=== PATIENT | male | born 1985 | race Caucasian/White ===

== ENCOUNTER 2018-06-15 04:18 | Emergency (ER) | payer OTHER ==
[2018-06-15] MEDS ORDERED: SODIUM CHLORIDE 0.9% 1000ML 1,000 ML ONE (04:30)
[2018-06-15] MEDS ORDERED: SODIUM CHLORIDE 0.9% 1000ML 1,000 ML IVS ONE (04:34)
[2018-06-15 04:59] VITALS: TEMP 96.1
--- NOTE | 2018-06-15 05:11 | RAD ---
EXAM: Single view chest. INDICATION: Respiratory distress. COMPARISON: Chest x-ray: None. FINDINGS: Cardiac silhouette: Unremarkable. Blanca: Unremarkable. Lobar consolidation: None. Pleural effusion: None. Pneumothorax: None. Other: None. Bones: Unremarkable. Other: None. IMPRESSION: 1. No acute cardiopulmonary process. Electronically signed by: Oscar Mckeon MD 06/15/2018 5:08 AM [facility] Workstation: [id number]
--- NOTE | 2018-06-15 05:42 | ED.PDOC ---
History of Present Illness - General Chief Complaint: Respiratory Problem Stated Complaint: respiratory distress Time Seen by Provider: 06/15/18 05:32 Source: EMS Exam Limitations: clinical condition - has ALS, physical impairment - unable to communicate just moves eyes - History of Present Illness Initial Comments: Raheem Saez 32 y/o male [place] resident at [facility] with history of ALS diagnose in 2014 brought by EMS that he was noted to be weak, with low heart rate.He has been on Trilogy respiratory support for his ALS His vital signs taken at [place] bp-106/70;p-94 Sao2-96 [id number] here at ER Timing/Duration: 1-3 hours Severity: moderate Improving Factors: other - bipap Worsening Factors: other - has ALS Associated Symptoms: other - see hpi Allergies/Adverse Reactions: Allergies NO KNOWN ALLERGY Allergy (Verified 06/15/18 04:48) Home Medications: Ambulatory Orders Acetaminophen 06/15/18 Gabapentin 06/15/18 Ketoconazole (Topical) [Nizoral] 06/15/18 Menthol (Topical Analgesic) [Biofreeze] 06/15/18 Riluzole 06/15/18 Rivaroxaban [Xarelto] 15 mg PO DAILY 06/15/18 Review of Systems - Review of Systems Constitutional: States: no symptoms reported EENTM: States: no symptoms reported Respiratory: States: see HPI Cardiology: States: no symptoms reported Gastrointestinal/Abdominal: States: no symptoms reported Genitourinary: States: no symptoms reported Skin: States: no symptoms reported Neurological: States: see HPI, pre-existing deficit Past Medical History (General) - Patient Medical History Hx Seizures: - unknown Hx Stroke: - unknown Hx Dementia: - unknown Hx Asthma: - unknown Hx of COPD: - unknown Hx Cardiac Disorders: - unknown Hx Congestive Heart Failure: No Hx Pacemaker: - unknown Hx Hypertension: - unknown Hx Thyroid Disease: - unknown Hx Diabetes: - unknown Hx Gastroesophageal Reflux: - unknown Hx Renal Disease: - unknown Hx of HIV: - unknown Hx MRSA: - unknown Hx Other PMH: Yes - ALS Surgical History: appendectomy - Vaccination History Hx Tetanus, Diphtheria Vaccination: No - unknown Hx Influenza Vaccination: No - unknown Hx Pneumococcal Vaccination: No - unknown Immunizations Up to Date: No - unknown - Social History Hx Tobacco Use: No Hx Alcohol Use: No Hx Physical Abuse: No Hx Emotional Abuse: No - Activities of Daily Living Prison/Assisted Living (if applicable):: Tam Bernardo Grooming Ability: Total Assistance Eating (Feeding) Ability: Total Assistance Toileting Ability: Total Assistance Family Medical History - Family History Mother Brother Family History: Unknown Physical Exam - Physical Exam General Appearance: Lethargic, Obvious distress Eye Exam: bilateral normal Ears, Nose, Throat: hearing grossly normal, other - dry oral mucosa Neck: supple, normal inspection Respiratory: lungs clear, respiratory distress Cardiovascular/Chest: no gallop, no murmur, tachycardia, other - eweak pulses Peripheral Pulses: radial,right: 1+, radial,left: 1+ Gastrointestinal/Abdominal: soft, no organomegaly Extremity: normal inspection, no pedal edema Neurologic: motor weakness - upper and lower extremities, other - unable to communcate verbally Skin Exam: normal color, warm/dry Progress - Progress Progress: 06/15/18 05:51 Talked with his brother Aaron on the phone regarding his brothers clinical condition and stated wants everything done on his brother-full code at this time. Vital Signs - 8 hr 06/15/18 06/15/18 06/15/18 04:30 04:33 04:55 Temperature 96.1 F L Pulse Rate [ 141 H Apical] Pulse Rate [ 147 H 137 H left] Respiratory 22 22 18 Rate Blood Pressure 141/113 [right] O2 Sat by Pulse 85 L Oximetry 06/15/18 06/15/18 05:00 05:40 Temperature Pulse Rate [ Apical] Pulse Rate [ 123 H 112 H left] Respiratory 18 18 Rate Blood Pressure 114/85 96/79 [right] O2 Sat by Pulse 96 96 Oximetry On his arrival he was BVM ventilated which perk him up then was connected to Bipap machine I/E -10/5;O2 -50% RR-16 06/15/18 06:21 06/15/18 06:24 He is on Bipap at present is more alert ,awake shakes and nods head if talked to. - Results/Orders Results/Orders: 06/15/18 05:22 UA [URINALYSIS] Stat 06/15/18 05:27 Arterial Blood Gas Stat BiPAP/CPAP Treatment DAILY 06/15/18 05:30 EKG STAT 06/15/18 09:00 BiPAP Daily Laboratory Results - last 24 hr 06/15/18 06/15/18 06/15/18 04:30 04:37 04:37 WBC 15.1 H RBC 4.82 Hgb 15.0 Hct 46.4 MCV 96.3 H MCH 31.1 H MCHC 32.3 L RDW 13.2 Plt Count 414 H MPV 9.8 Absolute Neuts (auto) 8.40 H Absolute Lymphs (auto) 5.30 H Absolute Monos (auto) 1.20 H Absolute Eos (auto) 0.20 Absolute Basos (auto) 0.10 Neutrophils % 55.4 Lymphocytes % 34.9 Monocytes % 7.7 Eosinophils % 1.5 Basophils % 0.5 PT 11.5 H INR 1.15 PTT (SP) 33.2 H Sodium 138 Potassium 5.3 H Chloride 100 L Carbon Dioxide 26 Anion Gap 17.3 BUN 16 Creatinine < 0.40 L BUN/Creatinine Ratio 40.0 H Random Glucose 142 H Serum Osmolality 279.3 Lactic Acid 1.7 Calcium 9.6 Magnesium 2.2 Creatine Kinase 87 CK-MB (CK-2) 9.8 H* CK-MB (CK-2) % 11.26 H Troponin I < 0.02 B-Natriuretic Peptide < 5.0 ABG-ph-7.35;co2-35;po2-177 Sao2-98.6 % on bipap - EKG/XRAY/CT EKG: Sinus, Tachy Comments: HR-138 XRAY: chest - no acute abnormalities Departure - Departure Clinical Impression: Lethargic, ALS (amyotrophic lateral sclerosis), Dehydration Acute and chronic respiratory failure, unspecified whether with hypoxia or hypercapnia Qualifiers: Respiratory failure complication: unspecified whether with hypoxia or hypercapnia Qualified Code(s): J96.20 - Acute and chronic respiratory failure, unspecified whether with hypoxia or hypercapnia Time of Disposition: 06:58 Disposition: Discharge to SNF Condition: Poor Departure Forms: ED Discharge - Pt. Copy, Patient Portal Self Enrollment Referrals: MARY ELLEN ANDREA [Primary Care Provider] - 1-2 Weeks Home Medications: Ambulatory Orders Acetaminophen 06/15/18 Gabapentin 06/15/18 Ketoconazole (Topical) [Nizoral] 06/15/18 Menthol (Topical Analgesic) [Biofreeze] 06/15/18 Riluzole 06/15/18 Rivaroxaban [Xarelto] 15 mg PO DAILY 06/15/18 Additional Instructions: Continue with respiratory support Trilogy and all medications;Return to ER as needed
[2018-06-15 07:28] VITALS: BP 110/75; O2SAT 98
== END 2018-06-15 07:28 ==
LOC: ER 04:18
DX: J96.20 Acute and chronic respiratory failure, unspecified whether with hypoxia or hypercapnia (principal); E86.0 Dehydration; R53.83 Other fatigue; G12.21 Amyotrophic lateral sclerosis; Z79.899 Other long term (current) drug therapy
CPT/HCPCS: 36600; 71045; 80048; 81001; 82550; 82553; 82803; 82805; 83605; 83880; 84484; 85025; 85610; 85730; 93005; 94660; J7030

== ENCOUNTER 2018-07-29 06:34 | Emergency (ER) | payer OTHER ==
[2018-07-29] MEDS ORDERED: ETOMIDATE INJECTION 2 MG/ML 20ML VIAL IV ONE (06:35)
[2018-07-29] MEDS ORDERED: SUCCINYLCHOLINE CHLORIDE 200 MG/10 ML VIAL ONE ×2 (06:37→10:42)
[2018-07-29] MEDS ORDERED: MIDAZOLAM INJ 5 MG/5 ML VIAL ONE ×3 (06:41→10:54)
[2018-07-29] MEDS ORDERED: MIDAZOLAM INJ 5 MG/5 ML VIAL IV ONE ×2 (06:45→07:35)
[2018-07-29] MEDS ORDERED: SODIUM CHLORIDE 0.9% 1000ML 1,000 ML ONE (06:47)
[2018-07-29] MEDS ORDERED: SODIUM CHLORIDE 0.9% 1000ML 1,000 ML IVS ONE ×2 (06:55→09:03)
--- NOTE | 2018-07-29 07:00 | ED.PDOC ---
History of Present Illness - General Source: patient Exam Limitations: no limitations - History of Present Illness Initial Comments: the patient is a 32-year-old male brought in by EMS secondary tobeing found unresponsive at his shelter. The patient has a history of ALS. He is normally on CPAP or BiPAP at night. He has previously refused tracheostomy in the past. He was apparently fairly normal for him when he went to bed last night but was unresponsive this morning. He was bradycardic and staff at the Center started chest compressions. by the time EMS arrived he was essentially apneic.oxygen saturation started decreasing in route. By the time they arrived here in spite of bagging his oxygen saturations were in the 30s. Rapid intubation was performed without medications with a 7.5 ET tubeto 20 cm at the teeth. Good return of normal oxygenation by pulse oximetry. He has bagging easy. He was switched over to a ventilator. He did receive 4 mg of Versed which unfortunately did drop his blood pressure somewhat. He is receiving some IV fluids to help correct that. He seems to be resting comfortably on the ventilator at this point. We are trying to connect with family. Paperwork from the shelter shows that he is full code. Chest x-ray, urinalysis, EKG, ABG and other laboratory workup being performed. Timing/Duration: unsure Severity: severe Improving Factors: nothing <Lui Don - Last Filed: 07/29/18 06:57> <Markus Hull - Last Filed: 07/29/18 09:14> - General Chief Complaint: Unresponsive Stated Complaint: unresponsive Time Seen by Provider: 07/29/18 06:45 - History of Present Illness Allergies/Adverse Reactions: Allergies NO KNOWN ALLERGY Allergy (Verified 06/15/18 04:48) Home Medications: Ambulatory Orders Acetaminophen 650 mg PO BID 06/15/18 Gabapentin 300 mg PO BEDTIME 06/15/18 Ketoconazole (Topical) [Nizoral] 1 oz .ROUTE WKLY 06/15/18 Menthol (Topical Analgesic) [Biofreeze] 1 drop EPI BID 06/15/18 Riluzole 50 mg PO BID 06/15/18 Rivaroxaban [Xarelto] 15 mg PO DAILY 06/15/18 Review of Systems - Review of Systems Review of Systems: 07/29/18 07:01 unable to give review of systems secondary to medical condition. <Lui Don - Last Filed: 07/29/18 06:57> Past Medical History (General) - Patient Medical History Hx Seizures: - unknown Hx Stroke: - unknown Hx Dementia: - unknown Hx Asthma: - unknown Hx of COPD: - unknown Hx Cardiac Disorders: - unknown Hx Congestive Heart Failure: No Hx Pacemaker: - unknown Hx Hypertension: - unknown Hx Thyroid Disease: - unknown Hx Diabetes: - unknown Hx Gastroesophageal Reflux: - unknown Hx Renal Disease: - unknown Hx of HIV: - unknown Hx MRSA: - unknown - Vaccination History Hx Tetanus, Diphtheria Vaccination: No - unknown Hx Influenza Vaccination: No - unknown Hx Pneumococcal Vaccination: No - unknown - Social History Hx Tobacco Use: No Hx Alcohol Use: No Hx Physical Abuse: No Hx Emotional Abuse: No <Lui Don - Last Filed: 07/29/18 06:57> Family Medical History - Family History Mother Brother Family History: Unknown <Lui Don Shirley - Last Filed: 07/29/18 06:57> Physical Exam - Physical Exam General Appearance: Other - the patient is pale and starting to become a little cyanotic. He is essentially flaccid by the time I see him. Eye Exam: bilateral normal - 3 mm bilaterally but minimally reactive Ears, Nose, Throat: normal pharynx - mildly dry, other - blood from the right nares Neck: full range of motion Respiratory: lungs clear - [id number] G-tube is in place, other - essentially no respiratory drive Cardiovascular/Chest: normal peripheral pulses, no edema, other - initially sinus bradycardia but mild sinus tachycardia after intubation and ventilation Peripheral Pulses: radial,right: 2+, radial,left: 2+, dorsalis pedis,right: 2+, dorsalis pedis,left: 2+ Gastrointestinal/Abdominal: soft - o definite palpable mass Rectal Exam: deferred Extremity: normal range of motion - passive, no pedal edema, normal capillary refill - after intubation, other - the patient is thin and wasted Neurologic: other - completely unresponsive initially Skin Exam: cyanosis, pallor <Lui Don - Last Filed: 07/29/18 06:57> Progress - Progress Progress: 07/29/18 07:03 the patient presents apneic and unresponsive. Workup has been ordered. Patient will be picked up by oncoming ER physician. 07/29/18 07:03 critical care time spent so far by me excluding otherwise billable procedures is 25 minutes. <Lui Don L - Last Filed: 07/29/18 06:57> - Progress Progress: 07/29/18 07:[address] SAWYER AT [facility] WHO ACCEPTED PT IN TRANSFER. 07/29/18 08:22 CXR REVIEWED BY ME: ET TUBE NOT VISUALIZED. ATTEMPTED TO ADVANCE TUBE APPOX 3CM. REPEAT CXR SHOWS TUBE TIP BARELY VISIBLE IN THE UPPER TRACHEA. ATTEMPTED TO ADVANCE TUBE FURTHER WITH NO CHANGE IN CXR APPEARANCE. PEAK PRESSURES HIGH ON VENT AND BAGGING WAS EXTREMELY DIFFICULT. PT WAS AWAKE AND DECISION WAS MADE TO EXTUBATE. UPON REMOVAL OF ET TUBE IT APPEARS IT WAS KINKED. PT WAS PLACED ON BIPAP AND IS DOING WELL ON 45% O2. CARE DISCUSSED WITH PTS BROTHER WHO WOULD LIKE PT SENT TO A CLOSER FACILITY TO HIM IN [place]. HE UNDERSTANDS AND AGREES THAT PT NEEDS A TRACH FOR [employer]NA[employer] OF [employer] C[employer], HOWEVER STATES THAT HIS BROTHER HAS REFUSED THIS IN THE PAST. HE IS HOPEFUL THAT HIS BROTHER WILL AGREE TO THIS SOON. STATES THAT PT HAD THE MAJORITY OF MEDICAL CARE AT [facility]. WILL ATTEMPT TO TRANSFER THERE. 07/29/18 09:13 UNABLE TO GET ACCEPTANCE AT [facility] DUE TO LACK OF AVAILABLE BEDS. WILL PROCEED WITH TRANSFER TO [facility]. PTS BROTHER NOTIFIED. - Results/Orders Results/Orders: Laboratory Tests 07/29/18 07/29/18 07/29/18 06:36 06:36 06:36 WBC 11.1 H RBC 4.17 L Hgb 13.1 L Hct 41.3 L MCV 99.2 H MCH 31.5 H MCHC 31.7 L RDW 13.9 Plt Count 373 MPV 9.5 Absolute Neuts (auto) 5.90 Absolute Lymphs (auto) 4.20 H Absolute Monos (auto) 0.60 Absolute Eos (auto) 0.30 Absolute Basos (auto) 0.00 Neutrophils % 53.7 Lymphocytes % 38.1 Monocytes % 5.5 Eosinophils % 2.3 Basophils % 0.4 PT 12.6 H INR 1.26 H PTT (SP) 35.3 H D-Dimer, Quantitative 2.61 H* pCO2 pO2 HCO3 ABG pH ABG O2 Saturation ABG Base Excess ABG Deoxyhemoglobin Oxyhemoglobin % Carboxyhemoglobin % Methemoglobin % Sat Calc Total Hemoglobin Sodium 140 Potassium 5.3 H Chloride 98 L Carbon Dioxide 32 H Anion Gap 15.3 BUN 12 Creatinine < 0.40 L BUN/Creatinine Ratio 30.0 H Random Glucose 275 H Serum Osmolality 289.0 Lactic Acid Calcium 9.7 Magnesium 2.4 Total Bilirubin 0.6 AST 57 H ALT 62 H Alkaline Phosphatase 112 Creatine Kinase 120 CK-MB (CK-2) 9.0 H* CK-MB (CK-2) % Not Reportable Troponin I 0.02 B-Natriuretic Peptide 17.1 Serum Total Protein 7.5 Albumin 4.3 Globulin 3.2 Albumin/Globulin Ratio 1.3 Urine Color Urine Appearance Urine pH Ur Specific [place] Urine Protein Urine Glucose (UA) Urine Ketones Urine Blood Urine Nitrite Urine Bilirubin Urine Urobilinogen Ur Leukocyte Esterase Urine RBC Urine WBC Ur Epithelial Cells Urine Bacteria 07/29/18 07/29/18 07/29/18 06:36 06:54 07:03 WBC RBC Hgb Hct MCV MCH MCHC RDW Plt Count MPV Absolute Neuts (auto) Absolute Lymphs (auto) Absolute Monos (auto) Absolute Eos (auto) Absolute Basos (auto) Neutrophils % Lymphocytes % Monocytes % Eosinophils % Basophils % PT INR PTT (SP) D-Dimer, Quantitative pCO2 34 L pO2 160 H* HCO3 23.0 ABG pH 7.440 ABG O2 Saturation 99.1 H ABG Base Excess -0.3 ABG Deoxyhemoglobin 0.9 Oxyhemoglobin % 97.0 Carboxyhemoglobin % -0.5 L Methemoglobin % Sat 2.6 H Calc Total Hemoglobin 10.5 L Sodium Potassium Chloride Carbon Dioxide Anion Gap BUN Creatinine BUN/Creatinine Ratio Random Glucose Serum Osmolality Lactic Acid 4.3 H* Calcium Magnesium Total Bilirubin AST ALT Alkaline Phosphatase Creatine Kinase CK-MB (CK-2) CK-MB (CK-2) % Troponin I B-Natriuretic Peptide Serum Total Protein Albumin Globulin Albumin/Globulin Ratio Urine Color Yellow Urine Appearance Clear Urine pH 5.5 Ur Specific [place] 1.020 Urine Protein Negative Urine Glucose (UA) Negative Urine Ketones Negative Urine Blood Moderate H Urine Nitrite Negative Urine Bilirubin Negative Urine Urobilinogen 0.2 Ur Leukocyte Esterase Negative Urine RBC 3-5 H Urine WBC 0 Ur Epithelial Cells 0 Urine Bacteria 0 - EKG/XRAY/CT EKG: Sinus, Tachy - 122BPM, RAD, RVH, RBBB - INCOMPLETE, no ST T wave changes, Unchanged from - 06/07 <Markus Hull - Last Filed: 07/29/18 09:14> Departure <Lui Don - Last Filed: 07/29/18 06:57> <Markus Hull - Last Filed: 07/29/18 09:14> - Departure Clinical Impression: Respiratory failure Disposition: Admit Patient Condition: Poor Departure Forms: ED Discharge - Pt. Copy, Patient Portal Self Enrollment Referrals: MARY ELLEN ANDREA [Primary Care Provider] - 1-2 Weeks Home Medications: Ambulatory Orders Acetaminophen 650 mg PO BID 06/15/18 Gabapentin 300 mg PO BEDTIME 06/15/18 Ketoconazole (Topical) [Nizoral] 1 oz .ROUTE WKLY 06/15/18 Menthol (Topical Analgesic) [Biofreeze] 1 drop EPI BID 06/15/18 Riluzole 50 mg PO BID 06/15/18 Rivaroxaban [Xarelto] 15 mg PO DAILY 06/15/18 Critical Care Note - Critical Care Note Total Time (mins): 65 <Markus Hull - Last Filed: 07/29/18 09:14> Transfer to Outside Facility - Transfer Information Reason for Transfer: specialized care not available <Markus Hull - Last Filed: 07/29/18 09:14> Addendum entered and electronically signed by Markus Hull MD 07/29/18 11:22: Departure - Departure Clinical Impression: Respiratory failure Disposition: Admit Patient Condition: Poor Departure Forms: ED Discharge - Pt. Copy, Patient Portal Self Enrollment Referrals: MARY ELLEN ANDREA [Primary Care Provider] - 1-2 Weeks Home Medications: Ambulatory Orders Acetaminophen 650 mg PO BID 06/15/18 Gabapentin 300 mg PO BEDTIME 06/15/18 Ketoconazole (Topical) [Nizoral] 1 oz .ROUTE WKLY 06/15/18 Menthol (Topical Analgesic) [Biofreeze] 1 drop EPI BID 06/15/18 Riluzole 50 mg PO BID 06/15/18 Rivaroxaban [Xarelto] 15 mg PO DAILY 06/15/18 ED Addendum - ED Addendum Addendum: PT UNABLE TO TOLERATE CPAP THAT EMS INITIATED. PTS SPO2 DROPPED AND PT BEGAN TO BECOME BRADYCARDIC. PT BAGGED UNTIL SPO2 AND HR INCREASED. DECISION MADE TO RE-INTUBATE PATIENT. ETOMIDATE AND SUCCINYLCHOLINE GIVEN. CXR SHOWS ET TUBE APPROX 2CM ABOVE THE HIRA AND SATIFACTORY NG TUBE PLACEMENT. PTS SPO2 98% WHILE BEING BAGGED WITH HR OF 115. PT TRANSFERRED TO [facility].
--- NOTE | 2018-07-29 07:18 | RAD ---
Study: Single Frontal Radiograph of the Chest. Indication:unresponsive, als Comparison: June 15, 2018 Impression: Trauma board underlies the patient. Heart size normal. Nipple shadow suspected at the left lung base. Otherwise, lungs clear. No pneumothorax. No acute osseous abnormality. Electronically signed by: Wood Ibarra MD 07/29/2018 7:15 AM CDT
[2018-07-29] MEDS ORDERED: MIDAZOLAM INJ 25 MG in SODIUM CHLORIDE 0.9% 50ML 25 ML IVPB SCH (07:36)
[2018-07-29] MEDS ORDERED: fentaNYL CITRATE INJ 50 MCG/ML AMP ONE (08:04)
[2018-07-29] MEDS ORDERED: SODIUM CHLORIDE 0.9% 50ML 50 ML ONE (08:04)
--- NOTE | 2018-07-29 08:06 | CT ---
Study: CT of the Head. Indication: ams Technique: Axial CT images of the head were acquired without intravenous contrast. This exam was performed according to our departmental dose-optimization program, which includes automated exposure control, adjustment of the mA and/or kV according to patient size and/or use of iterative reconstruction technique. Comparison: None. Findings: No acute ischemia, acute hemorrhage, mass, mass effect, midline shift, or extra-axial fluid collection identified by CT. Ventricles are normal in configuration without hydrocephalus. Brain parenchyma demonstrates a normal appearance for patient age. Paranasal sinuses are adequately aerated. Mastoid air cells are adequately aerated. Osseous structures and soft tissues are unremarkable. NG tube present. Endotracheal tube present. Impression: No acute intracranial abnormality by CT. Electronically signed by: Wood Ibarra MD 07/29/2018 8:03 AM CDT
[2018-07-29] MEDS ORDERED: fentaNYL CITRATE INJ 50 MCG/ML AMP IV ONE (08:14)
--- NOTE | 2018-07-29 08:17 | RAD ---
Portable chest INDICATION: ET tube placement COMPARISON: July 29 6:51 AM IMPRESSION: Nasogastric tube tip in the stomach. Endotracheal tube is barely visible in the lower neck with tip visible at the C7-T1 level in the upper trachea. Lungs are clear. Heart size is normal. No large effusion or pneumothorax. Small nodular density or nipple shadow left base recommend follow-up. Electronically signed by: Luis Mckeon MD 07/29/2018 8:14 AM CDT
[2018-07-29] MEDS ORDERED: SODIUM CHLORIDE 0.9% 100ML 100 ML IVPB ONE (10:54)
--- NOTE | 2018-07-29 11:12 | RAD ---
EXAM DESCRIPTION: Chest,1 View CLINICAL HISTORY: post intubation COMPARISON: July 29, 2018 at 0802 hours. IMPRESSION: Single AP portable upright view of the chest shows cardiac silhouette and pulmonary vasculature to be within normal limits. Interval advancement of the endotracheal tube is seen with tip now at the level of the aortic knob approximately 1 to 2 cm above the isauro. Nasogastric tube remains in good positioning extending into the fundus of the stomach. Lungs are normally aerated and clear. No obvious pleural effusion or pneumothorax is seen. Electronically signed by: Gerardo Gil MD 07/29/2018 11:08 AM CDT
[2018-07-29 12:18] VITALS: BP 123/85; TEMP 95.4; O2SAT 98
== END 2018-07-29 11:15 | disposition still patient (30) ==
LOC: ER 06:34
DX: J96.90 Respiratory failure, unspecified, unspecified whether with hypoxia or hypercapnia (principal); G12.21 Amyotrophic lateral sclerosis; R00.0 Tachycardia, unspecified; I45.10 Unspecified right bundle-branch block
CPT/HCPCS: 31500; 36600; 70450; 71045; 80053; 81001; 82550; 82553; 82803; 82805; 83605; 83735; 83880; 84484; 85007; 85025; 85379; 85610; 85730; 93005; 94002; 94660; 94770; A4216; J0330; J2250; J7030; J7050

== ENCOUNTER → 2019-07-10 | Outpatient (CLI) | payer OTHER | LOC: GOCC 11:45 | PROVIDERS: ATTEND Internal Medicine | DX: R50.9 Fever, unspecified (principal) ==

== ENCOUNTER → 2019-07-11 | Outpatient (CLI) | payer OTHER | LOC: GOCC 18:49 | PROVIDERS: ATTEND Internal Medicine | DX: R30.0 Dysuria (principal); S37.009A Unspecified injury of unspecified kidney, initial encounter ==

== ENCOUNTER → 2019-11-25 | Outpatient (CLI) | payer OTHER | LOC: GOCC 10:29 | PROVIDERS: ATTEND Internal Medicine | DX: J02.9 Acute pharyngitis, unspecified (principal); J96.02 Acute respiratory failure with hypercapnia; R49.1 Aphonia; K59.00 Constipation, unspecified; R13.12 Dysphagia, oropharyngeal phase; F41.1 Generalized anxiety disorder; M62.81 Muscle weakness (generalized); M70.20 Olecranon bursitis, unspecified elbow; Z93.0 Tracheostomy status; N39.0 Urinary tract infection, site not specified; H10.33 Unspecified acute conjunctivitis, bilateral; F32.89 Other specified depressive episodes; I82.409 Acute embolism and thrombosis of unspecified deep veins of unspecified lower extremity; R06.03 Acute respiratory distress; G12.21 Amyotrophic lateral sclerosis; B37.9 Candidiasis, unspecified; Z99.11 Dependence on respirator [ventilator] status; K21.9 Gastro-esophageal reflux disease without esophagitis; E44.1 Mild protein-calorie malnutrition; R11.0 Nausea ==